=== PATIENT | male | born 1995 | race African-American/Black ===

== ENCOUNTER 2023-10-17 13:48 | Emergency (ER) | payer MEDICAID ==
[~2023-10-17] VITALS: Ht 175.3 cm; Wt 160.0 kg
[2023-10-17] MEDS: IBUPROFEN 600 MG TABLET PO ONE (14:55)
[2023-10-17 16:28] VITALS: BP 153/90; PULSE 90; RESP 18; TEMP 98.4; O2SAT 100
[2023-10-17] MEDS ORDERED: IBUP-1492 PO ×2 (16:28→17:37)
== END 2023-10-17 17:47 | disposition home or self-care (01) ==
LOC: EMS 13:48
DX: G89.29 Other chronic pain (principal); M25.571 Pain in right ankle and joints of right foot
CPT/HCPCS: 29540; 99284; 73590-TC; 73610-TC; Z7502; Z7610

== ENCOUNTER 2024-04-26 06:15 | Emergency (ER) | payer SELFPAY ==
[~2024-04-26] VITALS: Ht 177.8 cm; Wt 79.5 kg
[~2024-04-26 06:15] MED LIST: IBUP-1492 PO
[2024-04-26 07:09] LABS: BASOPHILS % (AUTO) 0.3 % (0.0-2.0); EOSINOPHILS % (AUTO) 0.4 % (1.0-6.0); HEMATOCRIT 44.8 % (41-53); HEMOGLOBIN 14.9 g/dL (13.5-17.5); MEAN CORPUSCULAR HGB CONC 33.3 G/dL (31.0-37.0); MEAN CORPUSCULAR VOLUME 96 fL (80-100); MONOCYTES # (AUTO) 0.4 K/uL (0.1-1.0); NEUTROPHILS # (AUTO) 2.5 K/uL (1.8-7.7); NEUTROPHILS % (AUTO) 50.3 % (40.0-70.0); PLATELET COUNT (AUTO) 279 K/uL (150-450); RED BLOOD CELL COUNT(AUTO) 4.66 MIL/uL (4.50-5.90)
[2024-04-26 07:19] LABS: ANION GAP 12 mmol/L (8-16); CARBON DIOXIDE 28 mmol/L (22-29); CHLORIDE 106 mmol/L (98-107); CREATININE 0.96 mg/dL (0.60-1.30); GLOMERULAR FILTR. RATE CALC > 60 mL/min (>60); GLUCOSE,RANDOM 91 mg/dL (70-110); POTASSIUM 3.8 mmol/L (3.5-5.1); SODIUM SERUM 146 mmol/L (136-145); UREA NITROGEN, BLOOD 6 mg/dL (7-18)
[2024-04-26 07:24] LABS: ALANINE AMINOTRANSFERASE 69 U/L (12-78); ALBUMIN 4.2 g/dL (3.4-5.0); ALKALINE PHOSPHATASE 105 U/L (46-116); ASPARTATE AMINOTRANSFERASE 50 U/L (15-37); BILIRUBIN,TOTAL 0.2 mg/dL (0.1-1.0); TOTAL PROTEIN, SERUM 8.3 g/dL (6.4-8.2)
[2024-04-26 07:34] LABS: ALCOHOL, BLOOD (SERUM) 312 mg/dL (0-10)
[2024-04-26 10:11] VITALS: BP 105/55; PULSE 75; RESP 18; O2SAT 98
== END 2024-04-26 12:37 | disposition home or self-care (01) ==
LOC: EMS 06:24
DX: F10.129 Alcohol abuse with intoxication, unspecified (principal); R44.0 Auditory hallucinations; Y90.8 Blood alcohol level of 240 mg/100 ml or more
CPT/HCPCS: 99283; 80053; 85025; 36415; G0480